=== PATIENT | female | born 1940 | race Caucasian/White ===

== ENCOUNTER 2017-09-21 12:05 | Inpatient (IN) ==
[2017-09-21] MEDS: *HR* OxyCODONE/APAP 5/325 TABLET PO PRN ×3 (14:13→23:49)
[2017-09-21] MEDS: Sennosides/Docusate Sodium TABLET PO SCH (22:59)
[2017-09-22] MEDS: *HR* OxyCODONE/APAP 5/325 TABLET PO PRN ×3 (03:55→15:23)
[2017-09-22 05:32] LABS: Basophils % 0.3 %; Eosinophils # 0.3 K/mcL (0.0-0.6); Eosinophils % 3.6 %; Hematocrit 27.3 % (35.3-44.9); Hemoglobin 9.1 g/dL (11.5-15.4); Immature Granulocytes % 0.6 % (0-4); Lymphocytes # 2.7 K/mcL (0.6-4.6); Mean Corpuscular HGB Conc 33.3 g/dL (31.6-35.5); Mean Corpuscular Hemoglobin 30.3 pg (28.0-33.3); Mean Platelet Volume 9.2 fL (9.4-12.4); Monocytes # 0.6 K/mcL (0.0-1.3); Monocytes % 6.6 %; Neutrophils # 5.4 K/mcL (1.6-8.9); Platelet Count 202 K/mcL (140-400); Red Cell Distribution Width 12.5 % (11.5-14.5); Segmented Neutrophils % 58.9 %
[2017-09-22 05:47] LABS: BUN/Creatinine Ratio 25 (6-26); Blood Urea Nitrogen 18 mg/dL (7-20); Carbon Dioxide 22 mEq/L (19-29); Chloride 108 mEq/L (98-109); Glucose 98 mg/dL (70-99); Osmolality,Calculated 290 (280-300); Sodium 139 mEq/L (136-145); eGFR For African Americans > 60 (> 60); eGFR For Non-African Americans > 60 (> 60)
[2017-09-22] MEDS: Sennosides/Docusate Sodium TABLET PO SCH (08:15)
[2017-09-22] MEDS ORDERED: Multivit/Ca/Min/Fe/FA 1 TAB TABLET PO SCH (09:00)
[2017-09-22] MEDS ORDERED: *HR* Enoxaparin 40 MG/0.4 ML SYRINGE SQ SCH (09:00)
--- NOTE | 2017-09-22 09:00 | Internal Med History&Physical ---
Date of Encounter: 09/22/17 Time of Encounter: 08:55 Assessment and Plan (1) Subcapital fracture of left hip Current visit: Yes Status: Acute Status-post left hemiarthroplasty for therapies and recovery. Qualifies for therapy and should do well. Qualifiers: Encounter type: initial encounter Fracture type: closed Qualified Code(s) : S72.012A - Unspecified intracapsular fracture of left femur, initial encounter for closed fracture (2) Atrial fibrillation with RVR Current visit: No Status: Resolved Has not recurred, off medication and telemetry has been NSR for nearly 24 hours. Will discontinue to allow better relaxation and sleep, etc. (3) Acute blood loss as cause of postoperative anemia Current visit: No Status: Acute Apparently stable. Will follow VS and clinically. (4) DVT prophylaxis Current visit: No Status: Acute She is only on ASA per orthopedic prescription. Will assess Bilateral Duplex as she's having pretty significant calf tenderness. Will also add comporession in the form of SCDs or similar. (5) Acute metabolic encephalopathy Current visit: No Status: Resolved Persistent and I suspect sleep deprivation. Will transiently treat her with Remeron at evening to see if this will stabilize and help her delirium. Internal Medicine - H&P: HPI Admitted From: Hospital to Hospital Transfer Plans for Post Hospital Care: Home History of present illness: Ms. Welch is a 76 year old female who had a witnessed fall at home on 09-17-17 and came to [facility] where she complained of left hip pain and non- weight bearing. She was found to have a fractured left femoral head and underwent left hip hemiarthroplasty at [facility] in [facility] on . She had cardiovascular evaluation for acute atrial flutter-fibrillation postoperatively. She was placed on a Cardizem drip and underwent echocardiography which showed an EF of 60%, good LV systolic function, moderate diastolic dysfunction, and no significant valvular abnormalities. She spontaneously converted to NSR so her Cardizem was discontinued. Her postoperative course was complicated by rather marked delirium which persisted intermittently. She has had no localizing neurologic findings. Today, she has left hip pain. She states she has a "big gap" in memory of the fall or what happened that got her her. She is intermittently confused during the examination as to place and situation. She has no other localizing symptoms , currently. Past Med Surg Social Fam HX - Past Medical History Medical history: no medical history Psychiatric history: no psych history - Past Surgical History Surgical History: appendectomy, cholecystectomy - Social History Smoking Status: Never smoker Smokeless Tobacco Status: No Alcohol use: none Drug use: none - Family History Daughter Hx Family Endocrine Disorder: Yes (Hypothyroid) Internal Medicine - H&P: Meds Multivit-Min/FA/Lycopen/Lutein [A Thru Z Select Multivit Tab] 1 tab PO DAILY [History] Cyclobenzaprine [Flexeril] 10 mg PO TID PRN #21 tablet 09/21/17 [Rx] Enoxaparin [Lovenox] 40 mg SQ DAILY syringe 09/21/17 [Rx] OxyCODONE/APAP 5/325 [Percocet 5/325 MG] 1 each PO Q4HR PRN #28 tablet 09/21/17 [Rx] Polyethylene Glycol 3350 [MiraLAX] 17 gm PO DAILY #30 powd.pack 09/21/17 [Rx] Sennosides/Docusate Sodium [Senna Plus] 1 each PO BID #30 tablet 09/21/17 [Rx] 3 Allergy/AdvReac Type Severity Reaction Status Date / Time No Known Allergies Allergy Verified 09/17/17 18:36 All Systems PM: A 10-system review of systems was performed and is negative for pertinent findings except as documented above in the HPI. - Constitutional Constitutional: no chills, no fever(s), no night sweats - EENT Eyes: no change in vision, no discharge, no pain, no photophobia Ears: no ear discharge, no ear pain, no tinnitus Nose, mouth and throat: no dysphagia, no nasal discharge, no neck pain, no sore throat Additional comments: She wears upper and lower full dentures. - Cardiovascular Cardiovascular ROS IM: as per HPI, no chest pain, no diaphoresis, no dyspnea, no edema, no irregular heart rhythm, no lightheadedness, no syncope Additional comments: She has no memory of hospital events, fall, or irregular heartbeat. - Respiratory Respiratory: no cough, no dyspnea, no hemoptysis, no wheezing, no pain on inspiration - Gastrointestinal Gastrointestinal: no abdominal pain, no belching, no change in bowel habits, no constipation, no diarrhea, no heartburn, no vomiting - Genitourinary Genitourinary: no difficulty urinating, no urinary frequency - Musculoskeletal Musculoskeletal ROS IM: as per HPI, arthralgias, muscle cramps - Integumentary Integumentary IM: no new lesions - Neurological Neurological ROS: as per HPI, confusion, disequilibrium, memory loss, weakness - Psychiatric Psychiatric: as per HPI, confusion, no auditory hallucinations - Endocrine Endocrine IM: fatigue - Constitutional Vitals: Temp Pulse Resp BP Pulse Ox 98.1 F 85 16 125/76 96 09/22/17 07:49 09/22/17 07:49 09/22/17 07:49 09/22/17 07:49 09/22/17 07:49 General appearance: Present: A&O X 2, mild distress, pleasant, obese Exam: Confused as above. Anxious about how she's doing and doesn't want to be poorly thought of because of her confusion. - Head Head exam: Present: atraumatic, normocephalic - Eye Eye exam: Present: conjuntiva pink, sclera anicteric Pupils: Present: PERRL - ENT ENT exam: Present: mucous membranes moist, normal external ear exam, normal oropharynx Additional comments: Edentulou with full dentures present. - Neck Neck exam general surgery: Present: supple, trachea midline. Absent: lymphadenopathy Additional comments: Carotids are 2+ withouit bruit heard. - Respiratory Respiratory exam: Present: CTAB. Absent: accessory muscle use, rales, rhonchi, wheezes - Cardiovascular Cardiovascular exam: Present: RRR. Absent: diastolic murmur, systolic murmur - GI/Abdominal GI/Abdominal exam: Present: normal bowel sounds, soft, no peritoneal signs. Absent: distended, tenderness Additional comments: Moderately obese and therefore difficult to palpate deeply. - Extremities Exam Extremities exam: Present: calf tenderness, warm, radial pulses palpable and symmetrical. Absent: cyanotic, pedal edema Additional comments: Pain with range of motion at left hip and knee. Has rather marked calf tenderness, especially just below knee. - Neurological Exam Neurological exam: Present: alert, CN II-XII intact, no focal deficits. Absent : pronater drift, facial droop, speech deficit Additional comments: See comments above. Memory is faltering as per history and her comments. Very pleasant and strongly desires to please. - Psychiatric Psychiatric exam: Present: anxious Internal Med - H&P Results - Labs CBC & Chem 7: 09/22/17 05:00 09/22/17 05:00 Labs: Short CBC 09/22/17 Range/Units 05:00 WBC 9.1 (4.3-11.1) K/mcL Hgb 9.1 L (11.5-15.4) g/dL Hct 27.3 L (35.3-44.9) % Plt Count 202 (140-400) K/mcL Neutrophils # 5.4 (1.6-8.9) K/mcL BMP 09/22/17 05:00 Sodium 139 Potassium 4.0 Chloride 108 Carbon Dioxide 22 BUN 18 Creatinine 0.71 Glucose 98 Calcium 9.0
[2017-09-22 17:22] VITALS: BP 143/75
[2017-09-22] MEDS ORDERED: Mirtazapine 15 MG TABLET PO SCH (21:00)
--- NOTE | 2017-10-28 14:30 | Discharge Summary ---
Date of Encounter: 09/22/17 Time of Encounter: 05:00 - Discharge Diagnosis (1) Subcapital fracture of left hip Priority: Primary Status: Acute Qualifiers: Encounter type: subsequent encounter Fracture type: closed Fracture healing: with routine healing Qualified Code(s): S72.012D - Unspecified intracapsular fracture of left femur, subsequent encounter for closed fracture with routine healing (2) Atrial fibrillation with RVR Priority: Secondary Status: Chronic (3) Acute blood loss as cause of postoperative anemia Priority: Secondary Status: Deleted (4) DVT prophylaxis Priority: Secondary Status: Deleted Comments: Patient with calf tenderness on operati ve side. (5) Acute metabolic encephalopathy Priority: Secondary Status: Acute - Discharge Medications Home Medications: Mirtazapine [Remeron] 15 mg PO HS tablet 09/22/17 [Rx] Multivit/Ca/Min/Fe/FA [Thera M Plus] 1 tab PO DAILY tablet 09/22/17 [Rx] Polyethylene Glycol 3350 [MiraLAX] 17 gm PO DAILY powd.pack 09/22/17 [Rx] Sennosides/Docusate Sodium [Senna Plus] 1 each PO BID tablet 09/22/17 [Rx] Acetaminophen [Tylenol] 650 mg PO Q6HR PRN tablet 09/26/17 [Rx] Rivaroxaban [Xarelto] 20 mg PO 1700 tablet 09/26/17 [Rx] Mirtazapine [Remeron] 15 mg PO HS #30 tablet 10/06/17 [Rx] Allergies/Adverse Reactions: 3 Allergy/AdvReac Type Severity Reaction Status Date / Time No Known Allergies Allergy Verified 09/26/17 23:23 Date of admission: 09/21/17 12:16 Primary care physician: PCP NONE Consults: 09/21/17 13:18 Consult to Occupational Therapy [CONS] Routine Comment: eval Reason for Consult: eval Consult to Physical Therapy [CONS] Routine Comment: consult Reason for Consult: eval Consult to Recreational Therapy [CONS] Routine Comment: Consult to Licensed Insurance Agent [CONS] Routine Reason for SW Consult: d/c planning - Patient Status Disposition: Transfer Short-Term Hosp Condition: Fair - Ambulatory Orders Ambulatory Orders: Discharge Order Location: Determined By Patient - Discharge Instructions Follow Up With: NONE,PCP [Primary Care Provider] - (October 20 at 11:[address] Guerra, Cardiology in [place] ) Eddie Sanchez MD [Family Provider] - Hospital course: Ms. Welch is a 76 year old female transferred here for rehabilitation after repair of a hip fracture. Upon examination, she had rather marked tenderness of her lower thigh and upper calf on the operative side and had only used aspirin for prophylaxis, postoperatively. We requested a venous duplex to assess but could not obrain one at this facility so she was transferred to [facility] for further assessment and management. - Time Spent with Patient Total time spent providing and/or coordinating discharge services: - Constitutional Vitals: Temp Pulse Resp BP Pulse Ox 98.1 F 77 16 143/75 97 09/22/17 17:21 09/22/17 17:21 09/22/17 17:21 09/22/17 17:21 09/22/17 17:21 General appearance: Present: A&O X 2, mild distress, pleasant, obese Exam: See H & P examination, this date.
== END 2017-09-22 19:21 | disposition short-term general hospital (02) | DRG 559 ==
LOC: INPGRE 12:16
PROVIDERS: ADMIT Internal Medicine; ATTEND Internal Medicine

== ENCOUNTER 2017-09-26 15:12 | Inpatient (IN) ==
[2017-09-26] MEDS ORDERED: *HR* OxyCODONE/APAP 5/325 TABLET PO PRN (18:05)
[2017-09-26] MEDS: Sennosides/Docusate Sodium TABLET PO SCH (21:29)
[2017-09-26] MEDS: Mirtazapine 15 MG TABLET PO SCH (21:29)
[2017-09-27] MEDS: *HR* OxyCODONE/APAP 5/325 TABLET PO PRN ×2 (00:04→11:58)
[2017-09-27 05:43] LABS: Basophils % 0.4 %; Eosinophils # 0.3 K/mcL (0.0-0.6); Eosinophils % 4.3 %; Hematocrit 26.6 % (35.3-44.9); Hemoglobin 8.8 g/dL (11.5-15.4); Immature Granulocytes % 0.5 % (0-4); Lymphocytes # 2.2 K/mcL (0.6-4.6); Lymphocytes % 28.5 %; Mean Corpuscular HGB Conc 33.1 g/dL (31.6-35.5); Mean Corpuscular Hemoglobin 30.3 pg (28.0-33.3); Mean Corpuscular Volume 91.7 fL (83.0-100.0); Mean Platelet Volume 9.2 fL (9.4-12.4); Monocytes # 0.5 K/mcL (0.0-1.3); Monocytes % 6.4 %; Neutrophils # 4.6 K/mcL (1.6-8.9); Platelet Count 307 K/mcL (140-400); Red Cell Distribution Width 13.5 % (11.5-14.5); Segmented Neutrophils % 59.9 %
[2017-09-27 05:50] LABS: INR 1.4; Prothrombin Time 15.6 Seconds (9.4-12.1)
[2017-09-27 06:00] LABS: BUN/Creatinine Ratio 17 (6-26); Blood Urea Nitrogen 12 mg/dL (7-20); Carbon Dioxide 25 mEq/L (19-29); Chloride 109 mEq/L (98-109); Glucose 92 mg/dL (70-99); Osmolality,Calculated 289 (280-300); Potassium 3.8 mEq/L (3.5-4.5); Sodium 140 mEq/L (136-145); eGFR For African Americans > 60 (> 60); eGFR For Non-African Americans > 60 (> 60)
[2017-09-27] MEDS: Multivit/Ca/Min/Fe/FA 1 TAB TABLET PO SCH (07:58)
[2017-09-27] MEDS: Sennosides/Docusate Sodium TABLET PO SCH ×2 (07:59→20:34)
[2017-09-27] MEDS ORDERED: *HR* Enoxaparin 40 MG/0.4 ML SYRINGE SQ SCH (09:00)
--- NOTE | 2017-09-27 14:11 | Internal Med History&Physical ---
Date of Encounter: 09/27/17 Time of Encounter: 14:09 Assessment and Plan (1) Dementia Current visit: Yes Status: Acute Were trying to reorient her upon visits Qualifiers: Dementia behavioral disturbance: with behavioral disturbance Qualified Code (s): F01.51 - Vascular dementia with behavioral disturbance (2) Atrial fibrillation with RVR Current visit: No Status: Resolved Will observe. (3) Subcapital fracture of left hip Current visit: No Status: Acute Status post left hip repair status post fracture Qualifiers: Encounter type: initial encounter Fracture type: closed Qualified Code(s) : S72.012A - Unspecified intracapsular fracture of left femur, initial encounter for closed fracture Internal Medicine - H&P: HPI Chief complaint: Patient had a right total hip replacement for osteoarthritis. She was perez Admitted From: Hospital to Hospital Transfer Plans for Post Hospital Care: Home History of present illness: Ms. Welch is a 76 year old female Patient is very confused and disoriented. Past Med Surg Social Fam HX - Past Medical History Medical history: atrial fibrillation, dementia Psychiatric history: no psych history - Past Surgical History Surgical History: appendectomy, cholecystectomy - Social History Smoking Status: Never smoker Smokeless Tobacco Status: No Alcohol use: none Drug use: none - Family History Daughter History Unknown: Yes Hx Family Endocrine Disorder: Yes (Hypothyroid) Internal Medicine - H&P: Meds Cyclobenzaprine [Flexeril] 10 mg PO TID PRN #21 tablet 09/21/17 [Rx] Enoxaparin [Lovenox] 40 mg SQ DAILY syringe 09/22/17 [Rx] Mirtazapine [Remeron] 15 mg PO HS tablet 09/22/17 [Rx] Multivit/Ca/Min/Fe/FA [Thera M Plus] 1 tab PO DAILY tablet 09/22/17 [Rx] OxyCODONE/APAP 5/325 [Percocet 5/325 MG] 1 each PO Q4HR PRN tablet 09/22/17 [Rx ] Polyethylene Glycol 3350 [MiraLAX] 17 gm PO DAILY powd.pack 09/22/17 [Rx] Sennosides/Docusate Sodium [Senna Plus] 1 each PO BID tablet 09/22/17 [Rx] Acetaminophen [Tylenol] 650 mg PO Q6HR PRN tablet 09/26/17 [Rx] Insulin LISPRO [HumaLOG] 0 units SQ Q6HR vial 09/26/17 [Rx] OxyCODONE/APAP 5/325 [Percocet 5/325 MG] 2 each PO Q4HR PRN tablet 09/26/17 [Rx ] Rivaroxaban [Xarelto] 20 mg PO 1700 tablet 09/26/17 [Rx] 3 Allergy/AdvReac Type Severity Reaction Status Date / Time No Known Allergies Allergy Verified 09/26/17 23:23 All Systems PM: A 10-system review of systems was performed and is negative for pertinent findings except as documented above in the HPI. - Constitutional Constitutional: weakness, no anorexia, no chills, no excessive sweating, no fatigue, no fever(s), no falls, no lethargy, no malaise, no night sweats, no weight gain, no weight loss - EENT Eyes: no blurry vision, no change in vision, no decreased night vision, no diplopia, no discharge, no dry eye, no floaters, no irritation, no itchy eyes, no loss of vision, no seeing flashes, no spots in vision, no tunnel vision Ears: no decreased hearing, no ear discharge, no ear pain, no tinnitus Nose, mouth and throat: no bleeding gums, no change in voice, no dental pain, no dry mouth, no facial pain, no hoarseness, no lip swelling, no mouth lesions, no mouth pain, no nasal congestion, no nasal discharge, no nasal obstruction, no neck mass, no neck pain, no nose pain, no odynophagia, no post-nasal drip, no sinus pain, no sinus pressure, no sore throat, no throat swelling, no tongue swelling - Breasts Breasts: no change in shape, no mass, no pain, no nipple discharge, no skin changes, no swelling - Cardiovascular Cardiovascular ROS IM: no chest pain, no claudication, no diaphoresis, no dyspnea, no dyspnea on exertion, no edema, no irregular heart rhythm, no lightheadedness, no orthopnea, no palpitations, no paroxysmal nocturnal dyspnea , no syncope - Respiratory Respiratory: no cough, no dyspnea, no hemoptysis, no dyspnea on exertion, no wheezing, no snoring, no stridor, no pain on inspiration, no chest congestion, no excessive phlegm production, no change in phlegm color, no pain with cough - Gastrointestinal Gastrointestinal: no abdominal pain, no belching, no bloating, no change in bowel habits, no change in stool character, no coffee ground emesis, no constipation, no cramping, no diarrhea, no dyspepsia, no dysphagia, no early satiety, no excessive flatus, no fecal incontinence, no heartburn, no hematemesis, no hematochezia, no loose stools, no melena, no nausea, no odynophagia, no tenesmus, no vomiting - Genitourinary Genitourinary: no abnormal menses, no abnormal vaginal bleeding, no amenorrhea, no change in urinary stream, no difficulty conceiving, no difficulty urinating, no difficulty voiding, no dyspareunia, no dysuria, no flank pain, no genital lesions, no genital pruritis, no hematuria, no light periods, no menorrhagia, no sexual dysfunction, no urinary frequency, no urinary hesitancy, no urinary incontinence, no urinary urgency, no vaginal discharge, no vaginal dryness, no vaginal odor, no vaginal pruritis Additional comments: Not applicable - Musculoskeletal Musculoskeletal ROS IM: arthralgias, limited range of motion, no joint swelling , no neck pain, no numbness - Integumentary Integumentary IM: other, no new lesions, no non-healing lesions, no skin ulcer, no sores Additional comments: DVT - Psychiatric Psychiatric: confusion, memory loss, no abnormal sleep pattern, no anhedonia, no anxiety, no auditory hallucinations, no change in appetite, no change in libido, no depression, no difficulty concentrating, no hallucinations, no homicidal ideation, no mood swings, no panic attacks, no paranoia, no suicidal ideation, no visual hallucinations - Endocrine Endocrine IM: no cold intolerance, no deeping of the voice, no excessive sweating, no fatigue, no flushing, no heat intolerance, no polydipsia, no polyphagia, no polyuria - Hematologic/Lymphatic Hematologic/Lymphatic: no as per HPI, no easy bruising, no lymphadenopathy - Allergic/Immunologic Allergic/Immunologic: no tongue swelling, no throat swelling, no itchy eyes, no seasonal rhinorrhea, no uticaria, no wheezing, no GI upset with certain foods, no lip swelling - Constitutional Vitals: Temp Pulse Resp BP Pulse Ox 97.6 F 89 18 153/72 95 09/27/17 07:58 09/27/17 07:58 09/27/17 07:58 09/27/17 07:58 09/27/17 07:58 General appearance: Present: A&O X 0 - Head Head exam: Present: atraumatic, normal inspection, normocephalic - Neck Neck exam general surgery: Present: supple, trachea midline. Absent: lymphadenopathy - Respiratory Respiratory exam: Present: CTAB. Absent: accessory muscle use, rales, rhonchi, wheezes - Cardiovascular Cardiovascular exam: Present: RRR, +S1, +S2. Absent: diastolic murmur, gallop, rubs, systolic murmur Internal Med - H&P Results - Labs CBC & Chem 7: 09/27/17 05:00 09/27/17 05:00 Labs: Short CBC 09/27/17 Range/Units 05:00 WBC 7.7 (4.3-11.1) K/mcL Hgb 8.8 L (11.5-15.4) g/dL Hct 26.6 L (35.3-44.9) % Plt Count 307 (140-400) K/mcL Neutrophils # 4.6 (1.6-8.9) K/mcL BMP 09/27/17 05:00 Sodium 140 Potassium 3.8 Chloride 109 Carbon Dioxide 25 BUN 12 Creatinine 0.72 Glucose 92 Calcium 9.0 Lab is stable
[2017-09-27] MEDS: *HR* Rivaroxaban 10 MG TABLET PO SCH (17:23)
[2017-09-27] MEDS: Acetaminophen 325 MG TABLET PO PRN (20:33)
[2017-09-27] MEDS: Mirtazapine 15 MG TABLET PO SCH (20:34)
[2017-09-28] MEDS: Sennosides/Docusate Sodium TABLET PO SCH ×2 (08:57→20:54)
[2017-09-28] MEDS: Multivit/Ca/Min/Fe/FA 1 TAB TABLET PO SCH (08:57)
[2017-09-28] MEDS: Acetaminophen 325 MG TABLET PO PRN ×3 (11:15→19:26)
--- NOTE | 2017-09-28 15:36 | Internal Med Progress Note ---
Date of Encounter: 09/28/17 Time of Encounter: 15:34 - Assessment and plan (1) Dementia Current Visit: Yes Status: Acute Assessment and plan: She had dementia (but exacerbated by the medication. I have held narcotics. And she seems to be doing fine without Qualifiers: Dementia behavioral disturbance: with behavioral disturbance Qualified Code (s): F01.51 - Vascular dementia with behavioral disturbance (2) Atrial fibrillation with RVR Current Visit: No Status: Resolved Assessment and plan: No evidence of uncontrolled atrial fib at this point (3) Subcapital fracture of left hip Current Visit: No Status: Acute Assessment and plan: This what got her here to begin with and then she developed a DVT. Qualifiers: Encounter type: initial encounter Fracture type: closed Qualified Code(s) : S72.012A - Unspecified intracapsular fracture of left femur, initial encounter for closed fracture - Time Spent With Patient less than 15 minutes - Subjective Interval history: Patient still shows lucid moments interspaced with confusion. - Constitutional Vitals: Temp Pulse Resp BP Pulse Ox 99.2 F 79 16 137/77 95 09/27/17 19:00 09/28/17 07:00 09/27/17 19:00 09/28/17 07:00 09/28/17 07:00 General appearance: Present: A&O X 0, pleasant - Head Head exam: Present: atraumatic, normal inspection, normocephalic - Respiratory Respiratory exam: Present: CTAB. Absent: accessory muscle use, rales, rhonchi, wheezes - Cardiovascular Cardiovascular exam: Present: RRR, +S1, +S2. Absent: diastolic murmur, gallop, rubs, systolic murmur - GI/Abdominal GI/Abdominal exam: Present: normal bowel sounds, soft, no peritoneal signs. Absent: distended, tenderness Internal Medicine: Result - Labs CBC & Chem 7: 09/27/17 05:00 09/27/17 05:00 Labs: Lab looks good - ABG Interpretation ABG results: PT/INR, D-dimer PT 15.6 Seconds (9.4-12.1) H 09/27/17 05:00 Consult Discharge Plan - Plan Referrals: NONE,PCP [Primary Care Provider] - (Follow up with Dr Tracy 10-04-17 at 1:15 pm [phone] ) Eddie Sanchez MD [Family Provider] -
[2017-09-28] MEDS: *HR* Rivaroxaban 10 MG TABLET PO SCH (17:57)
[2017-09-28] MEDS: Mirtazapine 15 MG TABLET PO SCH (20:54)
[2017-09-29] MEDS: Acetaminophen 325 MG TABLET PO PRN ×3 (02:38→20:29)
[2017-09-29] MEDS: Sennosides/Docusate Sodium TABLET PO SCH ×2 (10:15→20:30)
[2017-09-29] MEDS: Multivit/Ca/Min/Fe/FA 1 TAB TABLET PO SCH (10:15)
[2017-09-29] MEDS: *HR* Rivaroxaban 10 MG TABLET PO SCH (16:20)
--- NOTE | 2017-09-29 17:00 | Internal Med Progress Note ---
Date of Encounter: 09/29/17 Time of Encounter: 16:58 - Assessment and plan (1) Dementia Current Visit: Yes Status: Acute Assessment and plan: She does have dementia which was I think exacerbated by surgery and narcotics and we have held narcotics Qualifiers: Dementia behavioral disturbance: with behavioral disturbance Qualified Code (s): F01.51 - Vascular dementia with behavioral disturbance (2) Subcapital fracture of left hip Current Visit: No Status: Acute Assessment and plan: Reason for surgery and then she got a DVT postop Qualifiers: Encounter type: initial encounter Fracture type: closed Qualified Code(s) : S72.012A - Unspecified intracapsular fracture of left femur, initial encounter for closed fracture - Time Spent With Patient less than 15 minutes - Subjective Interval history: Patient still shows lucid moments interspaced with confusion. But she does look good and she is cooperating with therapy - Constitutional Vitals: Temp Pulse Resp BP Pulse Ox 97.8 F 84 16 163/85 97 09/29/17 07:39 09/29/17 07:39 09/29/17 07:39 09/29/17 07:39 09/29/17 07:39 General appearance: Present: A&O X 0, pleasant - Head Head exam: Present: normal inspection - Neck Neck exam general surgery: Present: supple, trachea midline. Absent: lymphadenopathy - Respiratory Respiratory exam: Present: CTAB. Absent: accessory muscle use, rales, rhonchi, wheezes - Cardiovascular Cardiovascular exam: Present: RRR, +S1, +S2. Absent: diastolic murmur, gallop, rubs, systolic murmur Internal Medicine: Result - Labs CBC & Chem 7: 09/27/17 05:00 09/27/17 05:00 - ABG Interpretation ABG results: PT/INR, D-dimer PT 15.6 Seconds (9.4-12.1) H 09/27/17 05:00 Consult Discharge Plan - Plan Referrals: NONE,PCP [Primary Care Provider] - (Follow up with Dr Tracy 10-04-17 at 1:15 pm [phone] ) Eddie Sanchez MD [Family Provider] -
[2017-09-29] MEDS: Mirtazapine 15 MG TABLET PO SCH (20:31)
[2017-09-30] MEDS: Sennosides/Docusate Sodium TABLET PO SCH ×2 (10:23→21:06)
[2017-09-30] MEDS: Multivit/Ca/Min/Fe/FA 1 TAB TABLET PO SCH (10:23)
[2017-09-30] MEDS: Acetaminophen 325 MG TABLET PO PRN ×3 (10:25→21:05)
--- NOTE | 2017-09-30 14:00 | Internal Med Progress Note ---
Date of Encounter: 09/30/17 Time of Encounter: 13:57 - Assessment and plan (1) Acute metabolic encephalopathy Current Visit: Yes Status: Acute Assessment and plan: - Delirium as reported from prior notes, unknown if hyper vs hypoactive at that time - ? Dementia at baseline, unknown severity at this time. 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 - CT brain reviewed today indicative with frontal atrophy withou ventriculomegally - No temporal lobe atrophy seen, although difficult with CT compared to MRI - At this time, she perfomed badely on her 4AT - Visuspacial and executive domain implicated with abnormal clock drawing - Unknown how much she is able to perform on her ADLs - Has Depends, and I am not sure if this is functional - She would need a plan in regard to her transition of care from [facility] hospital to a [facility] facility Qualifiers: Dementia type: vascular dementia Dementia behavioral disturbance: without behavioral disturbance Qualified Code(s): F01.50 - Vascular dementia without behavioral disturbance (3) Atrial fibrillation with RVR Current Visit: No Status: Chronic Assessment and plan: Stable, continue to observe (4) Subcapital fracture of left hip Current Visit: No Status: Acute Assessment and plan: - S/p left hip repair after a fracture - Pain tolerated well, no signs of distress seen - Given dementia and superimposed delirium, advise adequate pain management to decrease the worsening Qualifiers: Encounter type: subsequent encounter Fracture type: closed Fracture healing: with routine healing Qualified Code(s): S72.012D - Unspecified intracapsular fracture of left femur, subsequent encounter for closed fracture with routine healing (5) Anemia Current Visit: No Status: Chronic Assessment and plan: - Stable, would continue to follow - Unsure type of anemia at this time, suspect post op anemia superimposed on chronic anemia Qualifiers: Anemia type: unspecified type Qualified Code(s): D64.9 - Anemia, unspecified - Time Spent With Patient 25 - 35 minutes - Subjective Interval history: - no complaints today - Reports that she is here [facility] - Reported a fall that happened 2 months ago and that appear to be the reason for left hip fracture - Pain is tolerable and her appetite is intact - Constitutional Vitals: Temp Pulse Resp BP Pulse Ox 98 F 91 15 142/76 91 09/30/17 07:00 09/30/17 07:00 09/30/17 07:00 09/30/17 07:00 09/30/17 07:00 General appearance: Present: A&O X 1, pleasant, no acute distress - Respiratory Respiratory exam: Present: CTAB. Absent: accessory muscle use, chest wall tenderness, prolonged expiratory phase, rales, respiratory distress, rhonchi, stridor, wheezes, tachypnea - Cardiovascular Cardiovascular exam: Present: RRR, +S1, +S2. Absent: bradycardia, diastolic murmur, irregular rhythm, JVD, systolic murmur, tachycardia - GI/Abdominal GI/Abdominal exam: Present: normal bowel sounds, soft. Absent: firm, guarding, hernia, mass, pulsatile mass, rebound - Neurological Exam Neurological exam: Absent: motor sensory deficit, speech deficit - Psychiatric Psychiatric exam: Present: normal affect, normal mood. Absent: anxious, depressed - Expanded Psychiatric Exam Focused psych exam: Absent: psychomotor agitation Internal Medicine: Result - Labs CBC & Chem 7: 09/27/17 05:00 09/27/17 05:00 - ABG Interpretation ABG results: PT/INR, D-dimer PT 15.6 Seconds (9.4-12.1) H 09/27/17 05:00 Consult Discharge Plan - Plan Referrals: NONE,PCP [Primary Care Provider] - (Follow up with Dr Tracy 10-04-17 at 1:15 pm [phone] ) Eddie Sanchez MD [Family Provider] -
[2017-09-30] MEDS: *HR* Rivaroxaban 10 MG TABLET PO SCH (16:30)
[2017-09-30] MEDS: Mirtazapine 15 MG TABLET PO SCH (21:05)
[2017-10-01] MEDS: Multivit/Ca/Min/Fe/FA 1 TAB TABLET PO SCH (07:57)
[2017-10-01] MEDS: Sennosides/Docusate Sodium TABLET PO SCH ×2 (07:57→21:45)
--- NOTE | 2017-10-01 15:16 | Internal Med Progress Note ---
Date of Encounter: 10/01/17 Time of Encounter: 15:14 - Assessment and plan (1) Acute metabolic encephalopathy Current Visit: Yes Status: Acute Assessment and plan: - Delirium as reported from prior notes, unknown if hyper vs hypoactive at that time - ? Dementia at baseline, unknown severity at this time. 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 - CT brain reviewed today indicative with frontal atrophy withou ventriculomegally - No temporal lobe atrophy seen, although difficult with CT compared to MRI - At this time, she perfomed badely on her 4AT - Visuspacial and executive domain implicated with abnormal clock drawing - Unknown how much she is able to perform on her ADLs - Has Depends, and I am not sure if this is functional - She would need a plan in regard to her transition of care from his hospital to a group home facility Qualifiers: Dementia type: vascular dementia Dementia behavioral disturbance: without behavioral disturbance Qualified Code(s): F01.50 - Vascular dementia without behavioral disturbance (3) Atrial fibrillation with RVR Current Visit: No Status: Chronic Assessment and plan: Stable, continue to observe (4) Subcapital fracture of left hip Current Visit: No Status: Acute Assessment and plan: - S/p left hip repair after a fracture - Pain tolerated well, no signs of distress seen - Given dementia and superimposed delirium, advise adequate pain management to decrease the worsening Qualifiers: Encounter type: subsequent encounter Fracture type: closed Fracture healing: with routine healing Qualified Code(s): S72.012D - Unspecified intracapsular fracture of left femur, subsequent encounter for closed fracture with routine healing (5) Anemia Current Visit: No Status: Chronic Assessment and plan: - Stable, would continue to follow - Unsure type of anemia at this time, suspect post op anemia superimposed on chronic anemia Qualifiers: Anemia type: unspecified type Qualified Code(s): D64.9 - Anemia, unspecified - Time Spent With Patient less than 15 minutes - Subjective Interval history: - no complaints today - appear to be at baseline - Pain is tolerable and her appetite is intact - Constitutional Vitals: Temp Pulse Resp BP Pulse Ox 98.1 F 85 17 157/89 96 10/01/17 06:00 10/01/17 06:00 10/01/17 06:00 10/01/17 06:00 10/01/17 06:00 General appearance: Present: A&O X 1, pleasant, no acute distress - Head Head exam: Present: atraumatic, normocephalic - Eye Eye exam: Present: PERRL, conjuntiva pink, sclera anicteric Pupils: Present: PERRL - Neck Neck exam general surgery: Present: supple, trachea midline. Absent: lymphadenopathy - Respiratory Respiratory exam: Present: CTAB. Absent: accessory muscle use, rales, rhonchi, wheezes - Cardiovascular Cardiovascular exam: Present: RRR, +S1, +S2. Absent: diastolic murmur, gallop, rubs, systolic murmur - GI/Abdominal GI/Abdominal exam: Present: normal bowel sounds, soft, no peritoneal signs. Absent: distended, tenderness - Extremities Exam Extremities exam: Present: warm, radial pulses palpable and symmetrical. Absent : calf tenderness, cyanotic, pedal edema - Neurological Exam Neurological exam: Present: CN II-XII intact, no focal deficits. Absent: pronater drift, facial droop, speech deficit - Skin Skin exam: Present: dry, intact Internal Medicine: Result - Labs CBC & Chem 7: 09/27/17 05:00 09/27/17 05:00 - ABG Interpretation ABG results: PT/INR, D-dimer PT 15.6 Seconds (9.4-12.1) H 09/27/17 05:00 Consult Discharge Plan - Plan Referrals: NONE,PCP [Primary Care Provider] - (Follow up with Dr Tracy 10-04-17 at 1:15 pm [phone] ) Eddie Sanchez MD [Family Provider] -
[2017-10-01] MEDS: Acetaminophen 325 MG TABLET PO PRN ×2 (17:07→23:14)
[2017-10-01] MEDS: *HR* Rivaroxaban 10 MG TABLET PO SCH (17:07)
[2017-10-01] MEDS: Mirtazapine 15 MG TABLET PO SCH (21:44)
[2017-10-02] MEDS: Sennosides/Docusate Sodium TABLET PO SCH ×2 (09:47→21:45)
[2017-10-02] MEDS: Multivit/Ca/Min/Fe/FA 1 TAB TABLET PO SCH (09:47)
--- NOTE | 2017-10-02 14:27 | Internal Med Progress Note ---
Date of Encounter: 10/02/17 Time of Encounter: 14:25 - Assessment and plan (1) Dementia Current Visit: Yes Status: Chronic Assessment and plan: Patient has dementia pretty significant Qualifiers: Dementia type: vascular dementia Dementia behavioral disturbance: without behavioral disturbance Qualified Code(s): F01.50 - Vascular dementia without behavioral disturbance (2) Subcapital fracture of left hip Current Visit: No Status: Acute Assessment and plan: Reason for rehabilitation. She came originally but had referred back for DVT but she is doing well and cooperates when she can but she simply cannot follow verbal direction Qualifiers: Encounter type: subsequent encounter Fracture type: closed Fracture healing: with routine healing Qualified Code(s): S72.012D - Unspecified intracapsular fracture of left femur, subsequent encounter for closed fracture with routine healing - Time Spent With Patient less than 15 minutes - Subjective Interval history: Patient still confused she does have pretty good dementia. But she is pleasant - Constitutional Vitals: Temp Pulse Resp BP Pulse Ox 98.3 F 83 18 155/80 97 10/02/17 07:46 10/02/17 07:46 10/02/17 07:46 10/02/17 07:46 10/02/17 07:46 General appearance: Present: A&O X 1, pleasant, no acute distress - Head Head exam: Present: atraumatic, normal inspection, normocephalic - Neck Neck exam general surgery: Present: supple, trachea midline. Absent: lymphadenopathy - Respiratory Respiratory exam: Present: CTAB. Absent: accessory muscle use, rales, rhonchi, wheezes - Cardiovascular Cardiovascular exam: Present: RRR, +S1, +S2. Absent: diastolic murmur, gallop, rubs, systolic murmur - GI/Abdominal GI/Abdominal exam: Present: normal bowel sounds, soft, no peritoneal signs. Absent: distended, tenderness Internal Medicine: Result - Labs CBC & Chem 7: 09/27/17 05:00 09/27/17 05:00 Labs: Labs stable - ABG Interpretation ABG results: PT/INR, D-dimer PT 15.6 Seconds (9.4-12.1) H 09/27/17 05:00 Consult Discharge Plan - Plan Referrals: NONE,PCP [Primary Care Provider] - (Follow up with Dr Tracy 10-04-17 at 1:15 pm [phone] ) Eddie Sanchez MD [Family Provider] -
[2017-10-02] MEDS: *HR* Rivaroxaban 10 MG TABLET PO SCH (16:49)
[2017-10-02] MEDS: Mirtazapine 15 MG TABLET PO SCH (21:45)
[2017-10-03] MEDS: Multivit/Ca/Min/Fe/FA 1 TAB TABLET PO SCH (07:51)
[2017-10-03] MEDS: Sennosides/Docusate Sodium TABLET PO SCH ×2 (07:51→21:43)
--- NOTE | 2017-10-03 14:25 | Internal Med Progress Note ---
Date of Encounter: 10/03/17 Time of Encounter: 14:23 - Assessment and plan (1) Dementia Current Visit: Yes Status: Chronic Assessment and plan: Dementia is significant Qualifiers: Dementia type: vascular dementia Dementia behavioral disturbance: without behavioral disturbance Qualified Code(s): F01.50 - Vascular dementia without behavioral disturbance (2) Subcapital fracture of left hip Current Visit: No Status: Acute Assessment and plan: Reason for admission and she was transferred out to a [facility] and she is back now and she is working with a therapist I need emphasize achieving 7 24-hour care. Qualifiers: Encounter type: subsequent encounter Fracture type: closed Fracture healing: with routine healing Qualified Code(s): S72.012D - Unspecified intracapsular fracture of left femur, subsequent encounter for closed fracture with routine healing - Time Spent With Patient less than 15 minutes - Subjective Interval history: Patient still confused she does have pretty good dementia. But she is pleasant - Constitutional Vitals: Temp Pulse Resp BP Pulse Ox 98.4 F 95 18 124/71 95 10/03/17 07:24 10/03/17 07:24 10/03/17 07:24 10/03/17 07:24 10/03/17 07:24 General appearance: Present: A&O X 1, pleasant, no acute distress - Head Head exam: Present: atraumatic, normal inspection, normocephalic - Neck Neck exam general surgery: Present: supple, trachea midline. Absent: lymphadenopathy - Respiratory Respiratory exam: Present: CTAB. Absent: accessory muscle use, rales, rhonchi, wheezes - Cardiovascular Cardiovascular exam: Present: RRR, +S1, +S2. Absent: diastolic murmur, gallop, rubs, systolic murmur - GI/Abdominal GI/Abdominal exam: Present: normal bowel sounds, soft, no peritoneal signs. Absent: distended, tenderness Internal Medicine: Result - Labs CBC & Chem 7: 09/27/17 05:00 09/27/17 05:00 Labs: Labs stable - ABG Interpretation ABG results: PT/INR, D-dimer PT 15.6 Seconds (9.4-12.1) H 09/27/17 05:00 Consult Discharge Plan - Plan Referrals: NONE,PCP [Primary Care Provider] - (Follow up with Dr Tracy 10-04-17 at 1:15 pm [phone] ) Eddie Sanchez MD [Family Provider] -
[2017-10-03] MEDS: Acetaminophen 325 MG TABLET PO PRN (17:04)
[2017-10-03] MEDS: *HR* Rivaroxaban 10 MG TABLET PO SCH (17:05)
[2017-10-03] MEDS: Mirtazapine 15 MG TABLET PO SCH (21:44)
[2017-10-04] MEDS: Acetaminophen 325 MG TABLET PO PRN (09:32)
[2017-10-04] MEDS: Multivit/Ca/Min/Fe/FA 1 TAB TABLET PO SCH (09:33)
[2017-10-04] MEDS: Sennosides/Docusate Sodium TABLET PO SCH (09:33)
--- NOTE | 2017-10-04 14:46 | Internal Med Progress Note ---
Date of Encounter: 10/04/17 Time of Encounter: 14:44 - Assessment and plan (1) Dementia Current Visit: Yes Status: Chronic Assessment and plan: Patient is improving physically but not really cognitively Qualifiers: Dementia type: vascular dementia Dementia behavioral disturbance: without behavioral disturbance Qualified Code(s): F01.50 - Vascular dementia without behavioral disturbance (2) Subcapital fracture of left hip Current Visit: Yes Status: Acute Assessment and plan: Michael was admitted for rehabilitation and was discovered to have a DVT was sent back to the [facility] and then return tear. Qualifiers: Encounter type: subsequent encounter Fracture type: closed Fracture healing: with routine healing Qualified Code(s): S72.012D - Unspecified intracapsular fracture of left femur, subsequent encounter for closed fracture with routine healing - Subjective Interval history: Waiting family's decision about placement. Patient we "re recommending in going home that she needs 24-hour supervision. - Constitutional Vitals: Temp Pulse Resp BP Pulse Ox 97.6 F 95 96 136/81 98 10/04/17 07:21 10/04/17 07:21 10/04/17 07:21 10/04/17 07:21 10/04/17 07:21 General appearance: Present: A&O X 1, pleasant, no acute distress - Head Head exam: Present: atraumatic, normal inspection, normocephalic - Neck Neck exam general surgery: Present: supple, trachea midline. Absent: lymphadenopathy - Respiratory Respiratory exam: Present: CTAB. Absent: accessory muscle use, rales, rhonchi, wheezes - Cardiovascular Cardiovascular exam: Present: RRR, +S1, +S2. Absent: diastolic murmur, gallop, rubs, systolic murmur Internal Medicine: Result - Labs CBC & Chem 7: 09/27/17 05:00 09/27/17 05:00 Labs: Lab is stable - ABG Interpretation ABG results: PT/INR, D-dimer PT 15.6 Seconds (9.4-12.1) H 09/27/17 05:00 Consult Discharge Plan - Plan Referrals: NONE,PCP [Primary Care Provider] - (Follow up with Dr Tracy 10-04-17 at 1:15 pm [phone] ) Eddie Sanchez MD [Family Provider] -
[2017-10-04] MEDS: *HR* Rivaroxaban 10 MG TABLET PO SCH (18:14)
[2017-10-05] MEDS: Acetaminophen 325 MG TABLET PO PRN (00:10)
[2017-10-05] MEDS: Mirtazapine 15 MG TABLET PO SCH ×2 (00:11→20:30)
[2017-10-05] MEDS: Sennosides/Docusate Sodium TABLET PO SCH ×3 (00:11→20:30)
[2017-10-05] MEDS: Multivit/Ca/Min/Fe/FA 1 TAB TABLET PO SCH (09:45)
--- NOTE | 2017-10-05 11:33 | Internal Med Progress Note ---
Date of Encounter: 10/05/17 Time of Encounter: 11:31 - Assessment and plan (1) Subcapital fracture of left hip Current Visit: Yes Status: Acute Assessment and plan: No acute issues. Surgical incision appears to be healing well. No deformity noted to hip. Patient ambulating with assistance and uses a walker with physical therapy but noted to continue to have unsteady gait. Patient continues as a fall risk. We will continue with current therapy and continue with current plan of care.. Prepare patient for discharge to possible ECF due to her history of dementia. Qualifiers: Encounter type: subsequent encounter Fracture type: closed Fracture healing: with routine healing Qualified Code(s): S72.012D - Unspecified intracapsular fracture of left femur, subsequent encounter for closed fracture with routine healing (2) Dementia Current Visit: Yes Status: Chronic Assessment and plan: Patient continues to be confused oriented to name only. Remains pleasant and falls directions well. Patient currently remains unable to perform ADLs dependently. Possible discharge to ECF. We will continue to monitor her situation Qualifiers: Dementia type: vascular dementia Dementia behavioral disturbance: without behavioral disturbance Qualified Code(s): F01.50 - Vascular dementia without behavioral disturbance (3) Atrial fibrillation with RVR Current Visit: No Status: Chronic Assessment and plan: No acute issues. Patient continues with irregular heart rate but her rate remains less than 100. Vital signs stable. We will continue with current medications - Time Spent With Patient less than 15 minutes - Subjective Interval history: No acute issues. Patient denies any current discomfort shortness of breath. Patient continues with moderate confusion but remains pleasant and able to answer most questions appropriately. Appears relaxed and is participating with therapy. - Constitutional Vitals: Temp Pulse Resp BP Pulse Ox 97.5 F L 97 18 151/79 97 10/05/17 07:48 10/05/17 07:48 10/05/17 07:48 10/05/17 07:48 10/05/17 07:48 General appearance: Present: A&O X 1, pleasant, no acute distress - Neck Neck exam general surgery: Present: supple, trachea midline. Absent: lymphadenopathy - Respiratory Respiratory exam: Present: CTAB. Absent: accessory muscle use, rales, rhonchi, wheezes - Cardiovascular Cardiovascular exam: Present: RRR, +S1, +S2. Absent: diastolic murmur, gallop, rubs, systolic murmur - GI/Abdominal GI/Abdominal exam: Present: normal bowel sounds, soft, no peritoneal signs. Absent: distended, tenderness - Extremities Exam Extremities exam: Present: warm, radial pulses palpable and symmetrical. Absent : calf tenderness, cyanotic, pedal edema Additional comments: Surgical incision appears to be healing well with no signs of infection. Left hip remains without signs of deformity. Ambulating with unsteady gait and use of walker and assistance - Neurological Exam Neurological exam: Present: CN II-XII intact, oriented X3, no focal deficits. Absent: pronater drift, facial droop, speech deficit - Psychiatric Additional comments: Vision continues to be confused. Oriented to name. States she knows she is in a hospital but unaware of exact place and time. Patient interacts well with staff and participates with care. - Skin Skin exam: Present: dry, intact Internal Medicine: Result - Labs CBC & Chem 7: 09/27/17 05:00 09/27/17 05:00 - ABG Interpretation ABG results: PT/INR, D-dimer PT 15.6 Seconds (9.4-12.1) H 09/27/17 05:00 Consult Discharge Plan - Plan Referrals: NONE,PCP [Primary Care Provider] - (Follow up with Dr Tracy 10-04-17 at 1:15 pm [phone] ) Eddie Sanchez MD [Family Provider] -
[2017-10-05 15:13] LABS: Hematocrit 34.4 % (35.3-44.9); Hemoglobin 10.8 g/dL (11.5-15.4); Mean Corpuscular HGB Conc 31.4 g/dL (31.6-35.5); Mean Corpuscular Hemoglobin 30.3 pg (28.0-33.3); Mean Corpuscular Volume 96.6 fL (83.0-100.0); Mean Platelet Volume 9.6 fL (9.4-12.4); Platelet Count 446 K/mcL (140-400); Red Blood Count 3.56 M/mcL (3.82-4.97); Red Cell Distribution Width 14.5 % (11.5-14.5)
[2017-10-05 15:17] LABS: BUN/Creatinine Ratio 23 (6-26); Blood Urea Nitrogen 18 mg/dL (7-20); Calcium 10.1 mg/dL (8.6-10.8); Carbon Dioxide 26 mEq/L (19-29); Chloride 107 mEq/L (98-109); Glucose 103 mg/dL (70-99); Osmolality,Calculated 294 (280-300); Sodium 141 mEq/L (136-145); eGFR For African Americans > 60 (> 60); eGFR For Non-African Americans > 60 (> 60)
[2017-10-05] MEDS: *HR* Rivaroxaban 10 MG TABLET PO SCH (16:44)
[2017-10-06 07:39] VITALS: BP 141/78
[2017-10-06] MEDS: Sennosides/Docusate Sodium TABLET PO SCH (09:37)
[2017-10-06] MEDS: Acetaminophen 325 MG TABLET PO PRN (09:40)
[2017-10-06] MEDS: Multivit/Ca/Min/Fe/FA 1 TAB TABLET PO SCH (09:40)
--- NOTE | 2017-10-06 13:41 | Discharge Summary ---
Date of Encounter: 10/06/17 Time of Encounter: 13:39 - Discharge Diagnosis (1) Dementia Priority: Primary Status: Chronic Qualifiers: Dementia type: vascular dementia Dementia behavioral disturbance: without behavioral disturbance Qualified Code(s): F01.50 - Vascular dementia without behavioral disturbance (2) Subcapital fracture of left hip Priority: Primary Status: Acute Qualifiers: Encounter type: subsequent encounter Fracture type: closed Fracture healing: with routine healing Qualified Code(s): S72.012D - Unspecified intracapsular fracture of left femur, subsequent encounter for closed fracture with routine healing - Discharge Medications Home Medications: Cyclobenzaprine [Flexeril] 10 mg PO TID PRN #21 tablet 09/21/17 [Rx] Enoxaparin [Lovenox] 40 mg SQ DAILY syringe 09/22/17 [Rx] Mirtazapine [Remeron] 15 mg PO HS tablet 09/22/17 [Rx] Multivit/Ca/Min/Fe/FA [Thera M Plus] 1 tab PO DAILY tablet 09/22/17 [Rx] OxyCODONE/APAP 5/325 [Percocet 5/325 MG] 1 each PO Q4HR PRN tablet 09/22/17 [Rx ] Polyethylene Glycol 3350 [MiraLAX] 17 gm PO DAILY powd.pack 09/22/17 [Rx] Sennosides/Docusate Sodium [Senna Plus] 1 each PO BID tablet 09/22/17 [Rx] Acetaminophen [Tylenol] 650 mg PO Q6HR PRN tablet 09/26/17 [Rx] Insulin LISPRO [HumaLOG] 0 units SQ Q6HR vial 09/26/17 [Rx] OxyCODONE/APAP 5/325 [Percocet 5/325 MG] 2 each PO Q4HR PRN tablet 09/26/17 [Rx ] Rivaroxaban [Xarelto] 20 mg PO 1700 tablet 09/26/17 [Rx] Allergies/Adverse Reactions: 3 Allergy/AdvReac Type Severity Reaction Status Date / Time No Known Allergies Allergy Verified 09/26/17 23:23 Date of admission: 09/26/17 19:14 Primary care physician: PCP NONE Consults: 09/26/17 21:50 Consult to Occupational Therapy [CONS] Routine Comment: eval treat Reason for Consult: eval treat Consult to Physical Therapy [CONS] Routine Comment: eval treat Reason for Consult: eval treat Consult to Recreational Therapy [CONS] Routine Comment: Discharging clinician: Eddie Ragland Anticipated date of discharge: 10/06/17 - Patient Status Disposition: Home, Self-Care Condition: Good Functional capacity at discharge: uses cane/walker Overall status at discharge: patient is progressing back to baseline - Discharge Instructions Follow Up With: NONE,PCP [Primary Care Provider] - (Follow up with Dr Tracy 10-04-17 at 1:15 pm [phone] ) Eddie Sanchez MD [Family Provider] - - Diet and Activity Activity: ambulate only with your walker, as per physical therapy Diet: advance to your usual diet Interval History: This patient was brought her for rehabilitation status post ORIF for subcapital fracture of her left femur. While she was here very briefly was noted that she had a DVT and she was transferred back to [facility]. She subsequently was returned here for her rehabilitation. Hospital course: Ms. Welch is a 76 year old female Patient is pleasantly demented but cannot remember safety nor orders or techniques. She needs 724 hour care at home. Apparently the family elected to take her home. She has improved though and does do what we say as long as the therapist is right with her. - Time Spent with Patient Total time spent providing and/or coordinating discharge services: Less than 30 minutes - Constitutional Vitals: Temp Pulse Resp BP Pulse Ox 98.3 F 85 16 141/78 97 10/06/17 07:00 10/06/17 07:00 10/06/17 07:00 10/06/17 07:00 10/06/17 07:00 General appearance: Present: A&O X 1, pleasant, no acute distress - Head Head exam: Present: atraumatic, normal inspection, normocephalic - Neck Neck exam general surgery: Present: supple, trachea midline. Absent: lymphadenopathy - Respiratory Respiratory exam: Present: CTAB. Absent: accessory muscle use, rales, rhonchi, wheezes - Cardiovascular Cardiovascular exam: Present: RRR, +S1, +S2. Absent: diastolic murmur, gallop, rubs, systolic murmur - GI/Abdominal GI/Abdominal exam: Present: normal bowel sounds, soft, no peritoneal signs. Absent: distended, tenderness
== END 2017-10-06 15:30 | disposition home or self-care (01) | DRG 559 ==
LOC: INPGRE 19:14
PROVIDERS: ADMIT Internal Medicine; ATTEND Internal Medicine